=== PATIENT | female | born 1960 | race Caucasian/White ===

== ENCOUNTER 2017-02-11 14:41 | Emergency (ER) | payer SELFPAY ==
[2017-02-11 14:45] VITALS: BP 133/73; BMI 32.5
--- NOTE | 2017-02-11 14:57 | DR.GENAD ---
HPI - PCP Primary Care Physician: NFD - Complaint/Symptoms Chief Complaint Doctors Comments: Patient has had a nodule ont the right lateral mid nasal bridge for several years. Four days ago the nodule became larger and tender. She is afebrile Chief Complaint:: PT. HAD A BUMP COME UP TO THE RIGHT SIDE OF HER NOSE TWO DAYS AGO. PT. C/O PAIN TO RIGHT SIDE OF FACE WELL SWELLING. - Source History Provided: Patient - Mode of Arrival Mode of Arrival: Ambulatory - Timing Onset of Chief Complaint: 02/09/17 PMH - PMH Past Medical History: Yes Past Medical History: CHF, COPD, Hypertension Past Medical History Comment: UTERINE CANCER, LEAKING HEART VALVE, SPURS IN NECK Past Surgical History: Yes Surgical History: Cholecystectomy, Hysterectomy Past Surgical History Comment: TUMOR ON NECK - Family History History of Family Medical Conditions: Yes Family Medical History: Diabetes Mellitus, Cancer - Social History Does patient currently use any type of tobacco product: Yes Have you used tobacco products in the last 12 months: Yes Type of Tobacco Use: Cigarettes How many years tobacco product used: 30 Does any household member use tobacco: No Alcohol Use: None Do you use any recreational Drugs:: No Lives With: Friend Lives Where: Home - infectious screening In the last 2 months have you had wt loss of >10#?: NO Have you had fever, night sweats or hemotysis?: No Have you traveled outside the country in the last 6 months?: No Isolation: Standard ROS - Review of Systems Constitutional: No Symptoms Reported Eyes: No Symptoms Reported ENTM: No Symptoms Reported Respiratoy: No Symptoms Reported Cardiovascular: No Symptoms Reported Gastrointestinal/Abdominal: No Symptoms Reported Genitourinary: No Symptoms Reported Neurological: No Symptoms Reported Musculoskeletal: See HPI Integumentary: See HPI, Lesions (right nasal bridge laterally) Hematologic/Lymphatic: No Symptoms Reported Endocrine: No Symptoms Reported Psychiatric: No Symptoms Reported All Other Systems: Reviewed and Negative PE - Vital Signs Vitals: Temperature 97.7 F Pulse Rate 759 Respiratory Rate 17 Blood Pressure 133/73 O2 Sat by Pulse Oximetry 5 - General Limitations: No Limitations General Appearance: Alert, In No Apparent Distress - Head Head Exam: Normal Inspection, Atraumatic - Eyes Eye exam: Normal Appearance, PERRL, EOMI - ENT ENT Exam: Normal Exam, Normal Oropharynx, Normal External Ear Exam External Ear Exam: Normal External Inspection TM/Canal Exam: Bilateral Normal Nose Exam: Other (Carbuncle with minimal erythema w/o tenderness) Mouth Exam: Normal Inspection Throat Exam: Normal Inspection - Neck Neck Exam: Normal Inspection, Full ROM - Chest Chest Inspection: Normal Inspection, Symmetric Chest Wall Rise - Respiratory Respiratory Exam: Bilateral Clear to Auscultation - Cardiovascular Cardiovascular Exam: Regular Rate, Normal Rhythm - Abdominal Exam Abdominal Exam: Normal Inspection Abdominal Tenderness: negative: RUQ, RLQ, LUQ, LLQ, Epigastrium, Suprapubic, Diffuse, Mild, Moderate, Severe, Other - Extremities Extremities Exam: Normal Inspection, Full ROM - Back Back Exam: Normal Inspection, Full ROM - Neurologic Neurological Exam: Alert, Oriented X3, CN II-XII Intact - Psychiatric Psychiatric Exam: Normal Affect - Skin Skin Exam: Warm, Dry, Intact ROR - Labs Reviewed Result Diagrams: 02/11/17 15:20 02/11/17 15:20 Laboratory: WBC 12.4 X10^3/uL (3.6-10.0) H 02/11/17 15:20 RBC 4.93 X10^6/uL (3.5-5.4) 02/11/17 15:20 Hgb 15.5 g/dL (12.0-16.0) 02/11/17 15:20 Hct 46.1 % (36.0-47.0) 02/11/17 15:20 MCV 93.7 fL (80.0-100.0) 02/11/17 15:20 MCH 31.5 pg (27.0-34.0) 02/11/17 15:20 MCHC 33.6 g/dL (33.0-35.0) 02/11/17 15:20 RDW 13.5 % (11.6-16.5) 02/11/17 15:20 Plt Count 251 X10^3/uL (150.0-450.0) 02/11/17 15:20 MPV 8.0 fL (7.4-11.0) 02/11/17 15:20 Neut % 57.3 % (42.0-75.0) 02/11/17 15:20 Lymph % 29.9 % (21.0-51.0) 02/11/17 15:20 [place] % 8.2 % (0.0-13.0) 02/11/17 15:20 Eos % 3.0 % (0.9-2.9) H 02/11/17 15:20 Baso % 1.6 % (0.2-1.0) H 02/11/17 15:20 Neut # 7.1 x10^3/uL (2.2-4.8) H 02/11/17 15:20 Lymph # 3.7 X10^3/uL (1.3-2.9) H 02/11/17 15:20 [place] # 1.0 x10^3/uL (0.3-0.8) H 02/11/17 15:20 Eos # 0.4 x10^3/uL (0.0-0.2) H 02/11/17 15:20 Baso # 0.2 X10^3/uL (0.0-0.1) H 02/11/17 15:20 Absolute Nucleated RBC 0.1 /100WBC 02/11/17 15:20 - Diagnosis Discharge Problem: Carbuncle - Discharge Plan Condition: Stable - Follow ups/Referrals Follow ups/Referrals: NFD,None [Primary Care Provider] - 3 days - Instructions
[2017-02-11] MEDS ORDERED: CLEOCIN 600 MG IV PREMIX 600 MG/50 ML BAG IV ONE (15:05)
[2017-02-11] MEDS ORDERED: CLEOCIN VIAL 600 MG ONE (15:15)
[2017-02-11 15:32] LABS: BASOPHILS # (AUTO) 0.2 X10^3/uL (0.0-0.1); BASOPHILS % (AUTO) 1.6 % (0.2-1.0); EOSINOPHILS # (AUTO) 0.4 x10^3/uL (0.0-0.2); HEMATOCRIT 46.1 % (36.0-47.0); HEMOGLOBIN 15.5 g/dL (12.0-16.0); LYMPHOCYTES # (AUTO) 3.7 X10^3/uL (1.3-2.9); LYMPHOCYTES % (AUTO) 29.9 % (21.0-51.0); MEAN CORPUSCULAR HEMOGLOBIN 31.5 pg (27.0-34.0); MEAN CORPUSCULAR HGB CONC 33.6 g/dL (33.0-35.0); MEAN CORPUSCULAR VOLUME 93.7 fL (80.0-100.0); MONOCYTES % (AUTO) 8.2 % (0.0-13.0); NEUTROPHILS # (AUTO) 7.1 x10^3/uL (2.2-4.8); NEUTROPHILS % (AUTO) 57.3 % (42.0-75.0); PLATELET COUNT 251 X10^3/uL (150.0-450.0); RED BLOOD COUNT 4.93 X10^6/uL (3.5-5.4); RED CELL DISTRIBUTION WIDTH 13.5 % (11.6-16.5); WHITE BLOOD COUNT 12.4 X10^3/uL (3.6-10.0)
[2017-02-11 15:45] LABS: ALANINE AMINOTRANSFERASE 23 Units/L (12-78); ALBUMIN 3.7 g/dL (3.4-5.0); ALKALINE PHOSPHATASE 105 Units/L (46-116); ASPARTATE AMINO TRANSFERASE 23 Units/L (15-37); BLOOD UREA NITROGEN 30 mg/dL (7-18); CARBON DIOXIDE 23.6 mmol/L (21-32); CHLORIDE 109 mmol/L (98-107); CREATININE 0.73 mg/dL (0.55-1.02); GLUCOSE 94 mg/dL (65-99); SODIUM 143 mmol/L (136-145); TOTAL PROTEIN 7.8 g/dL (6.4-8.2); eGFR BLACK RACES > 60 (>60); eGFR NON BLACK RACES > 60 (>60)
[2017-02-11] MEDS ORDERED: TYLENOL #3 TAB (W/CODEINE) PO ONE ×2 (15:46)
== END 2017-02-11 15:57 | disposition home or self-care (01) ==
LOC: ER 14:51
DX: L02.93 Carbuncle, unspecified (principal)
CPT/HCPCS: 36415; 80053; 85025; 96365; 96374; 99283; A4222; S0077